=== PATIENT | male | born 1975 | race Caucasian/White ===

== ENCOUNTER 2020-03-17 19:54 | Emergency (ER) | payer OTHER, SELFPAY ==
[~2020-03-17] VITALS: Ht 170.2 cm; Wt 72.6 kg
[2020-03-17 20:33] VITALS: Ht 170.2 cm; Wt 72.6 kg
[2020-03-17 20:46] VITALS: BP 136/84
== END 2020-03-17 20:46 | disposition home or self-care (01) ==
LOC: ED 19:54
DX: U07.1 COVID-19 (principal); B34.9 Viral infection, unspecified
CPT/HCPCS: U0003-CS

== ENCOUNTER 2020-04-20 09:11 | Emergency (ER) | payer OTHER, SELFPAY ==
[~2020-04-20] VITALS: Ht 180.3 cm; Wt 86.2 kg
[2020-04-20 09:31] VITALS: Ht 180.3 cm; Wt 86.2 kg
[2020-04-20 11:01] VITALS: BP 118/71
== END 2020-04-20 11:01 | disposition home or self-care (01) ==
LOC: ED 09:11
DX: J02.9 Acute pharyngitis, unspecified (principal); M79.10 Myalgia, unspecified site; Z20.828 Contact with and (suspected) exposure to other viral communicable diseases
CPT/HCPCS: U0003-CS

== ENCOUNTER 2020-11-22 10:40 | Emergency (ER) | payer MEDICAID, SELFPAY ==
[~2020-11-22] VITALS: Ht 182.9 cm; Wt 79.4 kg
[2020-11-22 10:51] VITALS: Ht 182.9 cm; Wt 79.4 kg
[2020-11-22] MEDS ORDERED: TESSALON PERLE100 MG PO (11:13)
[2020-11-22] MEDS ORDERED: PROAIR HFA8.5 GM INH (11:13)
[2020-11-22 11:28] VITALS: BP 133/82
== END 2020-11-22 11:28 | disposition home or self-care (01) ==
LOC: ED 10:40
DX: B34.9 Viral infection, unspecified (principal); Z20.822 Contact with and (suspected) exposure to COVID-19
CPT/HCPCS: 87804; U0003